=== PATIENT | female | born 1995 | race Caucasian/White ===

== ENCOUNTER 2020-04-22 12:11 | Outpatient (REF) | payer BC, SELFPAY ==
[2020-04-22 13:52] LABS: Anion Gap 6.1 mmol/L (3-11); BUN 14 mg/dL (7-18); CO2 24.9 mmol/L (21.0-32.0); CREATININE 0.8 mg/dL (0.55-1.02); Calcium 9.1 mg/dL (8.5-10.1); Calculated LDL 80 mg/dL (<100); Chloride 109 mmol/L (98-107); Cholesterol 146 mg/dL (<200); Glucose 98 mg/dL (74-106); HDL Cholesterol 57 mg/dL (40-60); Potassium 4.4 mmol/L (3.5-5.1); Sodium 140 mmol/L (136-145); TSH 1.24 uIU/mL (0.36-3.74); Triglyceride 48 mg/dL (<150)
== END 2020-04-22 12:12 | disposition home or self-care (01) ==
LOC: NCHCN 12:11
PROVIDERS: Visit Provider Nurse Practitioner Family
DX: Z13.220 Encounter for screening for lipoid disorders (principal); Z13.29 Encounter for screening for other suspected endocrine disorder; Z51.81 Encounter for therapeutic drug level monitoring
CPT/HCPCS: 80048; 80061; 84443